=== PATIENT | male | born 1990 | race Caucasian/White ===

== ENCOUNTER 2019-08-02 18:28 | Emergency (ER) | payer OTHER ==
[2019-08-02 18:41] VITALS: BP 110/53; PULSE 70; TEMP 98.2; BMI 25.0
[2019-08-02 20:15] LABS: BASO % 0.6 % (0-2.0); HEMATOCRIT 39.1 % (35.4-49); LYMPH % 38.2 % (8-40); MCH 29.6 pg (25.7-33.7); MCHC 33.1 g/dl (32.0-35.9); MEAN CELL VOLUME 89.3 fl (80-96); MEAN PLT VOLUME 9.6 fl (7.5-11.1); MONO % 10.3 % (3.8-10.2); NEUT % 45.9 % (42.8-82.8); PLATELET COUNT 197 K/MM3 (134-434); RBC 4.38 M/mm3 (4.00-5.60); RDW 13.6 % (11.9-15.9); WHITE BLOOD COUNT 5.6 K/mm3 (4.0-10.0)
[2019-08-02 20:45] LABS: ALBUMIN 4.4 g/dl (3.4-5.0); BILIRUBIN,TOTAL 0.4 mg/dL (0.2-1); BLOOD UREA NITROGEN 14.4 mg/dL (7-18); CALCIUM 9.1 mg/dL (8.5-10.1); POTASSIUM 4.4 mmol/L (3.5-5.1); TOT PROT 7.7 g/dl (6.4-8.2)
--- NOTE | 2019-08-02 22:03 | PDOC ---
History of Present Illness - General Chief Complaint: Cold Symptoms Stated Complaint: ABD/PAIN/MIGRAINES/ Time Seen by Provider: 08/02/19 19:01 - History of Present Illness Initial Comments: 08/02/19 21:59 28-year-old male presents for evaluation of intermittent abdominal pain for the last 4 months. No systemic symptoms. 08/02/19 22:01 He also complains of intermittent migraines for the last 4 months Past History - Past Medical History Allergies/Adverse Reactions: Allergies Allergy/AdvReac Type Severity Reaction Status Date / Time No Known Allergies Allergy Verified 08/02/19 18:38 - Psycho Social/Smoking Cessation Hx Smoking History: Current some day smoker Have you smoked in the past 12 months: Yes Number of Cigarettes Smoked Daily: 0 Information on smoking cessation initiated: No Hx Alcohol Use: Yes (occasionally) Drug/Substance Use Hx: Yes Review of Systems - Review of Systems Constitutional: No: Fever ABD/GI: Yes: See HPI *Physical Exam - Vital Signs Last Vital Signs Temp Pulse Resp BP Pulse Ox 98.2 F 70 18 110/53 L 100 08/02/19 18:38 08/02/19 18:38 08/02/19 18:38 08/02/19 18:38 08/02/19 18:38 - Physical Exam 08/02/19 22:00 GENERAL: The patient is awake, alert, and fully oriented, in no acute distress. HEAD: Normal with no signs of trauma. EYES: sclera anicteric, conjunctiva clear. ENT: Ears normal tympanic membranes normal oropharynx clear uvula midline NECK: Normal range of motion LUNGS: Breath sounds equal, clear to auscultation bilaterally. No wheezes, and no crackles. HEART: S1 and S2 without murmur, rub or gallop. ABDOMEN: Soft, mild left upper quadrant tenderness all other areas nontender Er , normoactive bowel sounds. No guarding, no rebound. No masses. EXTREMITIES: Normal range of motion, no edema. No clubbing or cyanosis. No cords, erythema, or tenderness. NEUROLOGICAL: Cranial nerves II through XII grossly intact. PSYCH: Normal mood, normal affect. SKIN: Warm, Dry, normal turgor, no rashes or lesions noted. ED Treatment Course - LABORATORY CBC & Chemistry Diagram: 08/02/19 19:45 08/02/19 19:45 - ADDITIONAL ORDERS Additional order review: Laboratory Results 08/02/19 19:45 Sodium 139 Potassium 4.4 Chloride 105 Carbon Dioxide 29 Anion Gap 5 L BUN 14.4 Creatinine 1.0 Est GFR (CKD-EPI)AfAm 117.36 Est GFR (CKD-EPI)NonAf 101.26 Random Glucose 96 Calcium 9.1 Total Bilirubin 0.4 AST 39 H ALT 40 Alkaline Phosphatase 33 L Total Protein 7.7 Albumin 4.4 Lipase 112 08/02/19 19:45 RBC 4.38 MCV 89.3 MCHC 33.1 RDW 13.6 MPV 9.6 Neutrophils % 45.9 Lymphocytes % 38.2 Monocytes % 10.3 H Eosinophils % 5.0 H Basophils % 0.6 - RADIOLOGY Radiology Studies Ordered: Category Date Time Status ABDOMEN & PELVIS CT WITH CONTR [CT] Stat CT Scan 08/02/19 19:[address] WITHOUT CONTRAST [CT] Stat CT Scan 08/02/19 19:34 Completed Medical Decision Making - Medical Decision Making 08/02/19 22:00 CAT scans normal blood work normal mild eosinophilia follow-up with primary care physician 08/02/19 22:03 Headache was relieved with discharge with watchful waiting Discharge - Discharge Information Problems reviewed: Yes Clinical Impression/Diagnosis: Abdominal pain, Headache Condition: Stable Disposition: HOME - Admission No - Follow up/Referral Referrals: Alonzo Modi MD [Staff Physician] - Balwinder Mallory MD [Staff Physician] - - Patient Discharge Instructions Additional Instructions: Follow-up with both neurology as well as primary care physician in 2 to 3 days for further evaluation and treatment options and return to the emergency room should symptoms return. - Post Discharge Activity
== END 2019-08-02 22:11 | disposition home or self-care (01) ==
LOC: JERFT 18:28
DX: R10.9 Unspecified abdominal pain (principal); R51 Headache; Z72.0 Tobacco use
CPT/HCPCS: 36415; 70450-TC; 74177-TC; 80053; 83690; 85025; 99282-25

== ENCOUNTER 2021-05-16 13:13 | Emergency (ER) | payer SELFPAY ==
[2021-05-16 13:23] VITALS: BP 117/76; BMI 27.1
[2021-05-16 13:29] VITALS: PULSE 80; TEMP 98.3
[2021-05-16] MEDS ORDERED: MECLIZINE HCL 25 MG TABLET (FP) PO ONE (13:54)
[2021-05-16] MEDS ORDERED: MECLIZINE HCL 25 MG TABLET (FP) ONE (13:57)
== END 2021-05-16 14:23 | disposition home or self-care (01) ==
LOC: JERFT 13:13
DX: H92.02 Otalgia, left ear (principal)
CPT/HCPCS: 71046-TC-FY; 99283-25